=== PATIENT | male | born 1980 | race Caucasian/White ===

== ENCOUNTER 2018-09-09 16:10 | Inpatient (IN) | payer BC ==
[~2018-09-09] VITALS: Ht 182.9 cm; Wt 120.2 kg
[2018-09-09 16:33] VITALS: BP_SYST 140
[2018-09-09 17:32] LABS: BILIRUBIN,URINE NEGATIVE (NEGATIVE); BLOOD, URINE 2+ (NEGATIVE); CLARITY/URINE CLEAR (CLEAR); COLOR,URINE YELLOW (YELLOW); GLUCOSE,URINE NEGATIVE (NEGATIVE); KETONES,URINE 1+ (NEGATIVE); LEUKOCYTE ESTERASE ,URINE TRACE (NEGATIVE); NITRITE, URINE NEGATIVE (NEGATIVE); PROTEIN URINE 2+ (NEGATIVE); UROBILINOGEN,URINE 0.2 (0.2-1.0)
[2018-09-09 17:52] LABS: BACTERIA,URINE FEW /HPF (None Seen); MUCUS,URINE None Seen /LPF (None Seen); RBC,URINE 0-3 /HPF (0-3)
[2018-09-09] MEDS ORDERED: cefTRIAXone 1 GM IVPB PREMIX 50 ML IV ONE (18:30)
[2018-09-09] MEDS ORDERED: NACL 0.9% 1,000 ML IV ONE (18:30)
[2018-09-09 19:01] LABS: BASOPHILS # (AUTO) 0.1 K/uL (0.0-0.2); BASOPHILS % (AUTO) 0.7 % (0.0-2.0); EOSINOPHILS % (AUTO) 0.1 % (0.0-4.0); HEMATOCRIT 45.3 % (36-54); HEMOGLOBIN 14.9 g/dL (14.0-18.0); LYMPHOCYTES # (AUTO) 1.3 K/uL (1.0-5.5); MEAN CORPUSCULAR HEMOGLOBIN 31 pg (27-31); MEAN CORPUSCULAR HGB CONC 33 % (32-36); MEAN CORPUSCULAR VOLUME 93 fL (79.0-98.0); MONOCYTES # (AUTO) 0.8 K/uL (0.0-1.0); MONOCYTES % (AUTO) 6.7 % (1.7-9.3); NEUTROPHILS % (AUTO) 81.5 % (40.0-70.0); PLATELET COUNT (AUTO) 175 K/uL (130-430); RED BLOOD CELL COUNT(AUTO) 4.86 MIL/uL (4.2-6.2); RED CELL DISTRIBUTION WIDTH 12.2 % (9.0-15.0); WHITE BLOOD COUNT (AUTO) 12.2 K/uL (4.8-10.8)
[2018-09-09 19:38] LABS: CALCIUM 9.1 mg/dL (8.4-11.0); CREATININE 1.53 mg/dL (0.55-1.30)
[2018-09-09 19:42] LABS: ALBUMIN 3.3 g/dL (3.4-4.8); TOTAL BILIRUBIN 0.8 mg/dL (0.0-1.0)
[2018-09-09] MEDS ORDERED: MORPHINE 2 MG/ML INJ. SYRINGE IVP PRN (20:15)
[2018-09-09] MEDS: NACL 0.9% 1,000 ML IV SCH (21:44)
[2018-09-09] MEDS ORDERED: ACETAMINOPHEN 325 MG TABLET PO PRN (22:15)
[2018-09-09] MEDS ORDERED: ONDANSETRON HCL 4 MG/2 ML VIAL IVP PRN (22:15)
[2018-09-10 00:41] VITALS: BP_SYST 135
[2018-09-10 00:55] VITALS: BP_SYST 123
[2018-09-10 07:45] VITALS: BP_SYST 134
[2018-09-10 07:49] LABS: CALCIUM 8.5 mg/dL (8.4-11.0); CREATININE 1.4 mg/dL (0.55-1.30); POTASSIUM 3.7 mmol/L (3.5-5.1)
[2018-09-10] MEDS: NACL 0.9% 1,000 ML IV SCH ×2 (07:55→14:47)
[2018-09-10 07:58] LABS: ALBUMIN 2.9 g/dL (3.4-4.8); TOTAL BILIRUBIN 0.6 mg/dL (0.0-1.0)
[2018-09-10 08:13] LABS: WHITE BLOOD COUNT (AUTO) 10.9 K/uL (4.8-10.8)
[2018-09-10 08:14] LABS: BASOPHILS % (AUTO) 0.2 % (0.0-2.0); EOSINOPHILS % (AUTO) 0.1 % (0.0-4.0); HEMATOCRIT 39.6 % (36-54); HEMOGLOBIN 12.9 g/dL (14.0-18.0); LYMPHOCYTES % (AUTO) 11.9 % (20.5-51.5); MEAN CORPUSCULAR HEMOGLOBIN 30 pg (27-31); MEAN CORPUSCULAR HGB CONC 33 % (32-36); MEAN CORPUSCULAR VOLUME 93 fL (79.0-98.0); NEUTROPHILS % (AUTO) 78.8 % (40.0-70.0); PLATELET COUNT (AUTO) 169 K/uL (130-430); RED BLOOD CELL COUNT(AUTO) 4.26 MIL/uL (4.2-6.2); RED CELL DISTRIBUTION WIDTH 12.2 % (9.0-15.0)
[2018-09-10 08:15] LABS: LYMPHOCYTES # (AUTO) 1.3 K/uL (1.0-5.5); NEUTROPHILS # (AUTO) 8.6 K/uL (1.8-7.7)
[2018-09-10] MEDS: FAMOTIDINE PF 20 MG/2 ML VIAL IVP SCH ×2 (08:33→20:51)
[2018-09-10] MEDS: TAMSULOSIN HCL 0.4 MG CAP PO SCH (09:33)
[2018-09-10 11:35] VITALS: BP_SYST 149
[2018-09-10 16:00] VITALS: BP_SYST 122
[2018-09-10] MEDS ORDERED: IOHEXOL 50 ML IV ONE (19:08)
[2018-09-10] MEDS ORDERED: KETOROLAC TROMETHAMINE 30 MG VIAL IVP PRN (19:15)
[2018-09-10] MEDS ORDERED: ONDANSETRON HCL 4 MG/2 ML VIAL IVP PRN (19:15)
[2018-09-10] MEDS ORDERED: fentaNYL CITRATE/PF 100 MCG/2 ML AMP IVP PRN ×2 (19:15)
[2018-09-10] MEDS ORDERED: MIDAZOLAM HCL 5 MG/ML VIAL (VERSED) IV ONE (19:45)
[2018-09-10] MEDS ORDERED: LR 1,000 ML IV.SOLN IV ONE (19:45)
[2018-09-10] MEDS ORDERED: cefTRIAXone 1 GM IVPB PREMIX 50 ML IV SCH (21:00)
[2018-09-11] VITALS: BP_SYST 122
[2018-09-11 01:17] VITALS: BP_SYST 154
[2018-09-11] MEDS: NACL 0.9% 1,000 ML IV SCH ×2 (02:47→06:22)
[2018-09-11 07:28] LABS: CALCIUM 8.8 mg/dL (8.4-11.0); CREATININE 1.31 mg/dL (0.55-1.30); POTASSIUM 4.3 mmol/L (3.5-5.1)
[2018-09-11 07:36] LABS: ALBUMIN 2.8 g/dL (3.4-4.8)
[2018-09-11 08:07] VITALS: BP_SYST 136
[2018-09-11] MEDS: FAMOTIDINE PF 20 MG/2 ML VIAL IVP SCH (08:47)
[2018-09-11] MEDS: TAMSULOSIN HCL 0.4 MG CAP PO SCH (08:47)
[2018-09-11] MEDS ORDERED: LEVO250T2 PO (09:33)
[2018-09-11] MEDS ORDERED: TAMS-11 PO (09:33)
[2018-09-11 10:32] VITALS: BP_SYST 136
== END 2018-09-11 11:02 | disposition home or self-care (01) | DRG 854 ==
LOC: SED 16:10 → SMU 20:02
PROVIDERS: ADMIT Internal Medicine Hospice and Palliative Medicine; ATTEND Internal Medicine Hospice and Palliative Medicine
PROC: BT1D1ZZ Fluoroscopy of Right Kidney, Ureter and Bladder using Low Osmolar Contrast (ICD-10-PCS; 2018-09-10)
PROC: 0T768DZ Dilation of Right Ureter with Intraluminal Device, Via Natural or Artificial Opening Endoscopic (ICD-10-PCS; principal; 2018-09-10 19:00)
DX: A41.9 Sepsis, unspecified organism (principal); N13.6 Pyonephrosis; N17.9 Acute kidney failure, unspecified
CPT/HCPCS: 36415; 76000; 80053; 81000-TC; 83605; 85025; 87040-TC; 87081; 87086; 99285; C1758; C1769; C2625; J0696; J2250; J2270; J3490; J7030; J7120; Q9967